=== PATIENT | male | born 1955 | race Caucasian/White ===

== ENCOUNTER 2024-11-18 16:53 | Emergency (ER) | payer OTHER, SELFPAY ==
[2024-11-18 16:59] VITALS: BP 130/67; PULSE 86; RESP 19; TEMP 36.9; O2SAT 97; BMI 29.5
--- NOTE | 2024-11-18 17:14 | PC.NURSE ---
Denies c spine tenderness.
--- NOTE | 2024-11-18 17:15 | DI.CT.S_ITS ---
PROCEDURE: CT HEAD/BRAIN WO CON INDICATIONS: fall on thinners TECHNIQUE: Noncontrast 4.5 mm thick angled axial sections acquired from the foramen magnum to the vertex, with coronal and sagittal reformats. For radiation dose reduction, the following was used: automated exposure control, adjustment of mA and/or kV according to patient size. COMPARISON: None. FINDINGS: Image quality: Diagnostic. CSF spaces: Basal cisterns are patent. No extra-axial fluid collections. Ventricles are normal in size and shape. Brain: No midline shift. No intracranial mass effect or hemorrhage. Huerta-white matter interface is normal. Skull and face: Calvarium and visualized facial bones are intact, without suspicious lesions. Sinuses: Visualized sinuses demonstrate minimal left maxillary and sphenoid mucosal thickening. IMPRESSION: 1. No acute intracranial process. 2. Mild atrophy and chronic microvascular ischemic changes. Dictated by: Jovana Cutler M.D. on 11/18/2024 at 17:34 Approved by: Jovana Cutler M.D. on 11/18/2024 at 17:37
--- NOTE | 2024-11-19 19:35 | ED.FALL ---
HPI - Fall General Chief Complaint: Fall Stated Complaint: fall, on blood thinners, sent by PCP Source: patient Mode of arrival: Ambulatory Related Data Allergies Allergy/AdvReac Type Severity Reaction Status Date / Time No Known Drug Allergies Allergy Verified 11/18/24 16:59 Exam Initial Vital Signs Initial Vital Signs: Vital Signs Temperature 98.5 F 11/18/24 16:59 Pulse Rate 86 11/18/24 16:59 Respiratory Rate 19 11/18/24 16:59 Blood Pressure 130/67 11/18/24 16:59 Pulse Oximetry 97 11/18/24 16:59 Oxygen Delivery Method Room Air 11/18/24 16:59 Discharge Plan Departure Patient Disposition: Left Without Being Seen Clinical Impression: Patient left without being seen
== END 2024-11-18 22:27 | disposition left against medical advice (07) ==
PROVIDERS: Emergency Provider Family Medicine
DX: S09.90XA Unspecified injury of head, initial encounter (principal); W19.XXXA Unspecified fall, initial encounter; Z79.01 Long term (current) use of anticoagulants
CPT/HCPCS: 70450; 99283